=== PATIENT | male | born 1960 ===

== ENCOUNTER 2018-12-08 01:46 | Emergency (ER) | payer SELFPAY ==
--- NOTE | 2018-12-08 02:19 | ED PDOC ---
HPI: Psych/Substance Abuse Time Seen by Provider: 12/08/18 01:56 Chief Complaint (Nursing): Alcohol Ingestion Chief Complaint (Provider): alcohol intoxication ED Caveat: Intoxicated History Per: EMS History/Exam Limitations: intoxication Onset/Duration Of Symptoms: Unknown Current Symptoms Are (Timing): Still Present Modifying Factor(s): Alcohol Severity: Moderate Involuntary Hold By: Emergency Physician Additional Complaint(s): Patient BIB EMS for public alcohol intoxication. On arrival to ED patient noted to have unsteady gait and slurred speech. No further history is available as patient is unable to provide history due to inebriated state. Past Medical History Reviewed: Historical Data, Nursing Documentation, Vital Signs Vital Signs: Last Vital Signs Temp 98.6 F 12/08/18 02:01 Pulse 90 12/08/18 02:01 Resp 16 12/08/18 02:01 BP 139/89 12/08/18 02:01 Pulse Ox 98 12/08/18 02:01 - Family History Family History: States: Unknown Family Hx - Allergies Allergies/Adverse Reactions: Allergies Allergy/AdvReac Type Severity Reaction Status Date / Time Unobtainable Allergy Verified 12/08/18 02:02 Physical Exam - Reviewed Nursing Documentation Reviewed: Yes Vital Signs Reviewed: Yes - Physical Exam Appears: Positive for: Well, Non-toxic Head Exam: Positive for: ATRAUMATIC, NORMOCEPHALIC Skin: Positive for: Normal Color, Warm, Dry Eye Exam: Positive for: Normal appearance, EOMI ENT: Positive for: Normal ENT Inspection Neck: Positive for: Normal Cardiovascular/Chest: Positive for: Regular Rate, Rhythm. Negative for: Murmur Respiratory: Positive for: Normal Breath Sounds. Negative for: Rales, Wheezing Gastrointestinal/Abdominal: Positive for: Normal Exam, Bowel Sounds, Soft. Negative for: Tenderness Back: Positive for: Normal Inspection Extremity: Positive for: Normal ROM. Negative for: Tenderness, Pedal Edema Neurological/Psych: Positive for: Gait (unsteady), Other (speech is slurred). Negative for: Awake, Alert (obtunded but arousable;) - ECG O2 Sat by Pulse Oximetry: 98 Medical Decision Making Medical Decision Makin yo intoxicated male BAL and AC ordered At 6AM patient clinically sober for discharge Dx Alcohol intoxication Disposition - Clinical Impression Clinical Impression: Alcohol abuse with intoxication - Disposition Disposition: Routine/Home Disposition Time: 06:00 Condition: STABLE Instructions: Alcohol Abuse and Alcoholism (DC) Forms: [facility] (Palestinian) Print Language: BELARUSIAN
[2018-12-08 07:55] VITALS: BP 127/75; PULSE 86; RESP 18; TEMP 98.3
[2018-12-08 21:04] VITALS: O2SAT 98
== END 2018-12-08 06:10 | disposition home or self-care (01) ==
LOC: H.ER 01:46
DX: F10.129 Alcohol abuse with intoxication, unspecified (principal); Y90.8 Blood alcohol level of 240 mg/100 ml or more
CPT/HCPCS: 82948; 99283; G0480